=== PATIENT | female | born 1960 | race Caucasian/White ===

== ENCOUNTER 2024-03-26 12:55 | Day surgery (SDC) | payer SELFPAY, OTHER ==
[2024-03-26] VITALS (11 sets, daily range): BP systolic 155–181; BP diastolic 77–84; PULSE 60–88; RESP 16–17; TEMP 36.6–36.9; O2SAT 98–100; BMI 25.5
[2024-03-26] MEDS: Lactated Ringers 1,000 ML 15 ML IV (13:38)
--- NOTE | 2024-03-26 13:51 | PCM.PRE.AN2 ---
ASA Classification* ASA Classification ASA Classification: 2 Assessment & Plan Anesthesia* Anesthesia Assessment Anesthesia Assessment: Discussed sedation and/or anesthesia options, risks, benefits, and alternatives with patient/parents/legal guardian/POA. Questions invited. The patient/parents/legal guardian/POA seems to understand and agrees to proceed with anesthesia plan. Reviewed the physical assessment, medical history, allergy history and patient home medications list prior to surgery/procedure/anesthetic and documented any changes. Performed airway and anesthesia risk assessments. Anesthesia Type Anesthesia Type: MAC (GA bkup) Anesthesia Focused Assessment* Temperature: 98.5 F Pulse Rate: 60 Blood Pressure: 181/84 Respiratory Rate: 17 Pulse Ox: 100 Airway Assessment Mouth opens: >3 cm Mallampati Score: II Focused Labs Anesthesia Preop lab: CBC CHEMISTRY COAG Pre-Assessment Diagnosis/Proposed Procedure Planned Operative Procedure(s): CYSTO LEFT URETEROSCOPY WITH BIOPSY AND LEFT URETERAL STENT CYSTO WITH RETROGRADES Anesthesia History Anesthesia History - blindstitch lining feller: Anesthesia History - blindstitch lining feller Hx Hospitalization No 03/24/24 09:13 Any Problems With Anesthesia No 03/24/24 09:13 Cholinesterase deficiency No 03/24/24 09:13 You/Your Family Experience No 03/24/24 09:13 fever (hyperthermia) with Relationship Recent Exposure to Contagious No 03/26/24 13:34 Disease Does patient have nerve No 03/24/24 09:13 stimulator Patient instructed to have device shut off --Does patient have Pacemaker No 03/26/24 13:34 or ICD? When Was Last Pacemaker Check QUESTION #4 FULL TEXT: You/Your Family Experience fever (hyperthermia) with Anesthesia Last Oral Intake Last Oral intake: Last Oral Intake NPO since 00:00 03/26/24 13:34 Meds taken in AM with sips of No 03/26/24 13:34 water? Meds patient instructed to take am of surgery PONV PONV - blindstitch lining feller: PONV - blindstitch lining feller Female Yes 03/24/24 09:13 HX of Motion Sickness Yes 03/24/24 09:13 HX of N/V After Surgery No 03/24/24 09:13 Non-Smoker Yes 03/24/24 09:13 Duration of Surgery greater Yes 03/24/24 09:13 than 60 minutes Number of Risk Factors 4 03/24/24 09:13 PONV Score Severe Risk 03/24/24 09:13 Height & Weight Height & Weight: Anesthesia: Height & Weight Height 5 ft 1 in 03/26/24 13:34 Weight: 61.3 kg 03/26/24 13:34 Body Mass Index (BMI) 25.5 03/26/24 13:34 Respiratory Assessment Respiratory Assessment - blindstitch lining feller: Respiratory Tract Infection Hx - blindstitch lining feller Hx Respiratory Tract Infection No 03/24/24 09:13 STOP Sleep Apnea STOP Sleep Apnea - blindstitch lining feller: STOP Sleep Apnea - blindstitch lining feller Hx Hypertension No 03/24/24 09:13 Hx Sleep Apnea No 03/24/24 09:13 CPAP BIPAP Do you snore loudly (louder No 03/24/24 09:13 than talking or can be heard Do you often feel tired/ No 03/24/24 09:13 fatigued/ sleepy during daytime? Has anyone observed you stop No 03/24/24 09:13 breathing during sleep? STOP Results Negative 03/24/24 09:13 QUESTION #5 FULL TEXT : Do you snore loudly (louder than talking or can be heard through closed doors)? 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 Specify any problems Hx of Preganancy in last 3 No 03/24/24 09:13 Months Nurse Filling Out Transfusion DSCHRIBER 03/24/24 09:13 & Questions: Date: 03/24/24 03/24/24 09:13 Time: 09:14 03/24/24 09:13 Patient unable to answer at this time (ie. confused, unrespo /Reproduction History /Reproductive History - blindstitch lining feller: /Reproductive Hx- blindstitch lining feller Hx Now No 03/24/24 09:13 Gestational Age (in weeks): EDC: Hx Hx Para Hx Section SAB No 03/24/24 09:13 Active Medications Active Medications: Current Medications Generic Name Dose Route Start Last Admin Trade Name Freq PRN Reason Stop Dose Admin Cefazolin Sodium 2 gm/ N/A 20 mls @ 400 mls/hr 03/26/24 15:10 IV 03/26/24 15:12 PREOP ONE Lactated Ringer's 1,000 mls @ 15 mls/hr 03/26/24 13:15 03/26/24 13:38 IV 04/01/24 02:34 15 mls/hr .Q48H СЕРГЕЙ Administration Protocol PFSH Medical History Wears glasses Wears dentures Post-menopausal Cancer DVT (deep venous thrombosis) History of diverticulitis Non-smoker Cardiology follow-up encounter History of echocardiogram History of stress test History of rheumatic fever Home Medications ?Medication ?Instructions ?Recorded ?Last Taken ?Type BLACK ELDERBERRY 2 cap PO TID 03/24/24 03/25/24 History ascorbic acid (vitamin C) 1,000 mg 1 g PO DAILY 03/24/24 03/25/24 History tablet (C-1000) d-mannose 500 mg capsule 500 mg PO DAILY 03/24/24 03/25/24 History fish, borage, flaxseed oils-omega 1 cap PO BID 03/24/24 03/25/24 History 3,6,9 comb no.1 1,200 mg capsule ([place] 3-6-9) vitamin B12 500 mcg-folic acid 400 1 tab PO DAILY 03/24/24 03/25/24 History mcg tablet Allergy/AdvReac Type Severity Reaction Status Date / Time No Known Allergies Allergy Verified 03/26/24 13:33 Surgical History Hx of colonoscopy History of vascular surgery Hx of fusion of cervical spine Hx of colectomy History of lumbar fusion Hx laparoscopic cholecystectomy Social History Smoking Status: Never smoker Review of Systems (Anesthesia) ROS Narrative System reviewed and no additional complaints, except as documented.
--- NOTE | 2024-03-26 15:12 | PCM.HP.STD ---
[facility] - General General Date of Service: 03/26/24 Chief Complaint: Ureteral hydronephrosis left side HPI Narrative JEANNIE COKER, is a 63 F who presents for an evaluation of hydroureter and hydronephrosis on the left side she does have a history of colon cancer had prior chemotherapy and radiation and colon resection and now she has developed left hydroureter ureteral nephrosis on the left side so suspicious that this could be the cause or is possible she has another etiology is causing the obstruction of the left kidney today plan to do ureteroscopy left retrograde pyelogram possible biopsy and left stent placement [facility] Medical History Wears glasses Wears dentures Post-menopausal Cancer DVT (deep venous thrombosis) History of diverticulitis Non-smoker Cardiology follow-up encounter History of echocardiogram History of stress test History of rheumatic fever Home Medications ?Medication ?Instructions ?Recorded ?Last Taken ?Type BLACK ELDERBERRY 2 cap PO TID 03/24/24 03/25/24 History ascorbic acid (vitamin C) 1,000 mg 1 g PO DAILY 03/24/24 03/25/24 History tablet (C-1000) d-mannose 500 mg capsule 500 mg PO DAILY 03/24/24 03/25/24 History fish, borage, flaxseed oils-omega 1 cap PO BID 03/24/24 03/25/24 History 3,6,9 comb no.1 1,200 mg capsule ([place] 3-6-9) vitamin B12 500 mcg-folic acid 400 1 tab PO DAILY 03/24/24 03/25/24 History mcg tablet ciprofloxacin HCl 500 mg tablet 500 mg PO BID #6 tabs 03/26/24 Unknown Rx (Cipro) oxycodone 5 mg tablet 5 mg PO Q6H PRN pain 3 days #14 03/26/24 Unknown Rx tabs Allergy/AdvReac Type Severity Reaction Status Date / Time No Known Allergies Allergy Verified 03/26/24 13:33 Surgical History Hx of colonoscopy History of vascular surgery Hx of fusion of cervical spine Hx of colectomy History of lumbar fusion Hx laparoscopic cholecystectomy Social History Smoking Status: Never smoker Vital Signs Vital Signs Vital Signs: 03/26/24 13:34 03/26/24 13:34 03/26/24 13:51 Temperature 98.5 F 98.5 F Temperature Source Temporal Pulse Rate 60 60 Respiratory Rate 17 17 Respiratory Pattern Normal Blood Pressure 181/84 H 181/84 H Blood Pressure Mean 116 Blood Pressure Source Monitor Blood Pressure Position Semi-Fowlers Blood Pressure Location Left Arm Pulse Ox 100 100 Oxygen Delivery Method Room Air Weight Weight: 61.3 kg Body Mass Index (BMI) 25.5
--- NOTE | 2024-03-26 15:13 | DCINST_ITS ---
Discharge Instructions Diet Discharge Diet: No restrictions Activity Discharge Activity: Return to Normal Activity and May Not Drive (while taking narcotic pain medications.) Dressing / Incision Call your doctor if you observe: Fever of 101 or Higher Follow Up Care Please Follow Up With: Willard Wilkes MD When: Call [phone] for an appointment Test Results: Test results from this visit will be discussed in further detail at your follow- up appointment, if applicable. Discharge Plan Admission Primary Reason for Your Visit: left stent Attending Provider: Willard Wilkes Primary Care Provider: Sergey Morales Instructions Print Language: Montserratian Discharge Orders/Prescriptions Prescriptions: New ciprofloxacin HCl [Cipro] 500 mg tablet 500 mg PO BID Qty: 6 0RF oxycodone 5 mg tablet 5 mg PO Q6H PRN (Reason: pain) 3 Days Qty: 14 0RF Continued ascorbic acid (vitamin C) [C-1000] 1,000 mg tablet 1 g PO DAILY vitamin Y80-mciyb acid 500-400 mcg tablet 1 tab PO DAILY Rx Instructions: administer with a meal [place] 3-6-9 1,200 mg capsule 1 cap PO BID BLACK ELDERBERRY 2 cap PO TID d-mannose 500 mg capsule 500 mg PO DAILY Referrals / Follow Up: Willard Wilkes MD [Med Staff - Active Staff] - Sergey Morales DO [Primary Care Provider] - Disposition Disposition (needs filled in before D/C Order can be placed): Home, Self Care
[2024-03-26] MEDS: Cefazolin 2 GM in Syringe IV (15:20)
--- NOTE | 2024-03-26 15:36 | PCM.OPRPT ---
Operative Report (Standard) Operative Information Surgery/Procedure Performed: Cystoscopy left retrograde pyelogram and left stent placement Surgeon: Willard Wilkes Date of Procedure: 03/26/24 Procedure Start Time: 15:27 Procedure Stop Time: 15:36 Pre-Operative Diagnosis: Left hydroureteronephrosis Post-Operative Diagnosis: The same Select all DRAINS/GRAFTS/IMPLANTS that apply: Drains Drain details: 6 Salvadorean by 24 cm stent left side Type of Anesthesia: General Estimated Blood Loss: None Specimen collected: No Description of surgery: Patient was taken back to the operating room at this with duction of anesthesia she was placed in dorsolithotomy position looked in the bedside the bladder with a 24 Salvadorean rigid cystourethroscope the bladder was completely normal I then cannulated the left ureteral orifice with a Glidewire performed a retrograde contrast for cc contrast going up the ureter quite a bit but then the contrast would not go all the way up then advanced the the wire further up and then advanced a Pollick catheter further up and until I got a point there was a lot of resistance on the Pollick catheter I then performed a retrograde pyelogram there and you could see that contrast was squeaking through a very tight stricture in the ureter right over the pelvis and then the ureter was dilated I then was able to get a wire up into the kidney and then went past the wire with a Pollick catheter I then placed a stent on the left side to drain the kidney. 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 Patient's bladder was drained anesthesia reversed and she will follow-up in the office in a few weeks to review the results and discuss options. Surgical Findings: Dense stricture on retrograde on the left side and the ureter over the mid pelvis on x-rays were taken to prove Heel Painter honest john rocket crew member: No Complications Complications: No Admit VTE Documentation VTE Present on Admission: No VTE Mechan Device Prophylaxis: SCD's VTE Pharm Prophylaxis ordered?: No
--- NOTE | 2024-03-26 15:46 | PCM.POST.ANE ---
Anesthesia: Postop Eval I Current Vital Signs Temperature: 98 F Pulse Rate: 88 Blood Pressure: 165/80 Respiratory Rate: 16 Pulse Ox: 99 Oxygen Delivery Method: Room Air Assessment Airway patent: Yes Spontaneous unlabored respirations: Yes Mental status: Asleep nausea: No Vomiting: No Anesthesia Complication: No Fluid Hydration Crystalloid volume administer (ml): 400 Total IV fluid infused: 400 Progress Note Anesthesia document: Postop Eval 1 completed: Yes
--- NOTE | 2024-03-26 17:01 | POSTOPAN2_ITS ---
Anesthesia Postop Eval I Sum Postop Eval Completion status Anesthesia document: Postop Eval 1 completed: Yes Anesthesia Postop Eval I Summary Anesthesia Postop Eval I Summary: Anesthesia Postop Eval I: Assessment Summary Airway patent Yes 03/26/24 15:46 SPRINKLER [email or web address] Spontaneous unlabored Yes 03/26/24 15:46 SPRINKLER [email or web address] respirations Mental status Asleep 03/26/24 15:46 SPRINKLER [email or web address] nausea No 03/26/24 15:46 SPRINKLER [email or web address] Vomiting No 03/26/24 15:46 SPRINKLER [email or web address] Anesthesia Postop Eval I: Fluid Summary Crystalloid volume administer 400 03/26/24 15:46 SPRINKLER [email or web address] (ml) Colloids volume administered ( ml) Blood Product volume administered (ml) Total IV fluid infused 400 03/26/24 15:46 SPRINKLER [email or web address] Anesthesia Postop Eval I: Summary Notes Anesthesia Complication No 03/26/24 15:46 SPRINKLER [email or web address] Anesthesia Complication Comment: Post-operative progress note Anesthesia: Postop Eval II Evaluation Mental status: Awake and Calm Pain Level: 1 nausea: No Vomiting: No Complications Anesthesia Complication: No
--- NOTE | 2024-03-26 17:01 | PCM.POSTANE2 ---
Anesthesia Postop Eval I Sum Postop Eval Completion status Anesthesia document: Postop Eval 1 completed: Yes Anesthesia Postop Eval I Summary Anesthesia Postop Eval I Summary: Anesthesia Postop Eval I: Assessment Summary Airway patent Yes 03/26/24 15:46 APPRENTICE PATTERN [email or web address].[email or web address] Spontaneous unlabored Yes 03/26/24 15:46 APPRENTICE PATTERN MAKER.[email or web address] respirations Mental status Asleep 03/26/24 15:46 APPRENTICE PATTERN MAKER.[email or web address] nausea No 03/26/24 15:46 APPRENTICE PATTERN MAKER.[email or web address] Vomiting No 03/26/24 15:46 APPRENTICE PATTERN MAKER.[email or web address] Anesthesia Postop Eval I: Fluid Summary Crystalloid volume administer 400 03/26/24 15:46 APPRENTICE PATTERN MAKER.[email or web address] (ml) Colloids volume administered ( ml) Blood Product volume administered (ml) Total IV fluid infused 400 03/26/24 15:46 APPRENTICE PATTERN MAKER.JENNIFFER Anesthesia Postop Eval I: Summary Notes Anesthesia Complication No 03/26/24 15:46 APPRENTICE PATTERN MAKER.[email or web address] Anesthesia Complication Comment: Post-operative progress note Anesthesia: Postop Eval II Evaluation Mental status: Awake and Calm Pain Level: 1 nausea: No Vomiting: No Complications Anesthesia Complication: No
[2024-03-26] MEDS: 0.9% Saline Lock 10 ML Syringe IV (17:13)
== END 2024-03-26 17:57 | disposition home or self-care (01) ==
LOC: SDC 12:57 → AC 12:58
PROVIDERS: PCP Family Medicine; Referring Provider Urology; Visit Provider Urology
PROC: 0TJ98ZZ Inspection of Ureter, Via Natural or Artificial Opening Endoscopic (ICD-10-PCS; CPT 52352; principal; 2024-03-26 15:00)
DX: N13.1 Hydronephrosis with ureteral stricture, not elsewhere classified (principal); Z92.21 Personal history of antineoplastic chemotherapy; Z90.49 Acquired absence of other specified parts of digestive tract; Z85.038 Personal history of other malignant neoplasm of large intestine; Z92.3 Personal history of irradiation
CPT/HCPCS: 52332; 76000; J7120; A4216; C1769; C2617; J2405

== ENCOUNTER 2024-03-29 07:38 | Observation (INO) | payer OTHER, SELFPAY ==
[2024-03-29] VITALS (8 sets, daily range): BP systolic 148–174; BP diastolic 68–95; PULSE 67–80; RESP 16–18; TEMP 36.6–37.2; O2SAT 98–999; BMI 24.7; BMI 24.5
--- NOTE | 2024-03-29 08:14 | CT_ITS ---
INDICATION: left flank pain, ureter stent EXAMINATION: CT ABDOMEN AND PELVIS WITHOUT CONTRAST - CT Abdomen And Pelvis W/O Contrast Injection TECHNIQUE: Helically acquired images were obtained of the abdomen and pelvis without oral or IV contrast. The protocol utilizes one or more of the following dose reduction techniques: automated exposure control, adjustment of mA and/or kV according to patient size,and/or use of iterative reconstruction technique. IV Contrast dosage and agent: None. Oral contrast: None. RADIATION DOSAGE (If Supplied By Facility): CTDIvol = ( 6.75 ) mGy, DLP = ( 303.32 ) mGycm COMPARISON: No relevant prior comparison study available FINDINGS: LOWER CHEST: Lung bases are clear. No cardiomegaly or pericardial effusion. The lack of intravenous contrast limits evaluation of solid visceral organs. LIVER: Homogeneous. No focal mass. GALLBLADDER AND BILIARY TREE: There is nonvisualization of the gallbladder. No intra- or extrahepatic biliary ductal dilation. PANCREAS: No focal cystic or solid mass. SPLEEN: Normal size without focal cystic or solid mass. ADRENAL GLANDS: No nodules. KIDNEYS AND URETERS: Normal renal size and position. There is mild right-sided hydroureteronephrosis. There is a left-sided ureteral stent in place with proximal catheter within the left renal pelvis and the distal catheter terminating within the urinary bladder. There is moderate left-sided hydroureteronephrosis and perinephric stranding. There is a focus of air within the left upper collecting system consistent with prior instrumentation. PERITONEUM: No ascites or free air. No other fluid collection. BOWEL: No evidence of acute appendicitis. No stomach or bowel distension. No focal inflammatory change. There is a moderate amount of stool throughout the colon. There are sutures within the distal sigmoid colon. LYMPH NODES: No enlarged mesenteric or retroperitoneal lymph nodes. VESSELS: Aorta is non-dilated. There are peripheral calcifications of the abdominal aorta. URINARY BLADDER: Unremarkable. REPRODUCTIVE ORGANS: No pelvic masses. ABDOMINAL WALL: No discrete abdominal or pelvic wall hernia. BONES: There are postsurgical changes of L4-S1 characterized by bilateral pedicle screws and posterior spinal rods. There is L5 superior endplate deformity that appears chronic. CT/Abdomen/Pelvis without Cont IMPRESSION: Moderate left-sided hydroureteronephrosis associated perinephric stranding and a ureteral stent in place with the proximal stent within the renal pelvis and the distal stent within the urinary bladder. Mild right-sided hydroureteronephrosis. Moderate amount of stool throughout the colon. Atherosclerosis. Electronically Signed: Jaida Watters MD at 8:55 EST ,
[2024-03-29 08:22] LABS: Bacteria 0 SEEN /hpf (None Seen); Mucous, Urine 0 SEEN /hpf (<or=2+)
--- NOTE | 2024-03-29 08:25 | EX.ED.DYSGE1 ---
HPI History of Present Illness Chief Complaint: Abd Pain Informant: patient Narrative Narrative: Patient is a 63-year-old female presenting with worsening left-sided abdominal pain and back pain. 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 This was performed by Dr. Wilkes. She states the pain has been relatively well-controlled but she started having worsening pain Friday evening, 2 nights ago. She took her pain meds throughout the day yesterday but then last night developed worsening pain again. She states from 3:30 AM to 5:30 AM the pain was unbearable. She last took a Percocet at 5 AM. She states the pain is now still there but bearable. She states she has had vomiting but attributes it to the pain. She states her bowel movements have been okay given the fact that she is on pain medicine. She was having dysuria but that has improved. She denies any blood in her urine. Denies any fever or chills. Also having pain in her right lower back. Came in for further evaluation. [facility] Medical History Wears glasses Wears dentures Post-menopausal Cancer DVT (deep venous thrombosis) History of diverticulitis Non-smoker Cardiology follow-up encounter History of echocardiogram History of stress test History of rheumatic fever Home Medications ?Medication ?Instructions ?Recorded ?Last Taken ?Type BLACK ELDERBERRY 2 cap PO TID 03/24/24 03/25/24 History ascorbic acid (vitamin C) 1,000 mg 1 g PO DAILY 03/24/24 03/25/24 History tablet (C-1000) d-mannose 500 mg capsule 500 mg PO DAILY 03/24/24 03/25/24 History fish, borage, flaxseed oils-omega 1 cap PO BID 03/24/24 03/25/24 History 3,6,9 comb no.1 1,200 mg capsule ([place] 3-6-9) vitamin B12 500 mcg-folic acid 400 1 tab PO DAILY 03/24/24 03/25/24 History mcg tablet ciprofloxacin HCl 500 mg tablet 500 mg PO BID #6 tabs 03/26/24 Unknown Rx (Cipro) oxycodone 5 mg tablet 5 mg PO Q6H PRN pain 3 days #14 03/26/24 Unknown Rx tabs ondansetron 4 mg disintegrating 4 mg PO Q8H PRN PRN Nausea #10 tabs 03/29/24 Unknown Rx tablet oxycodone 5 mg tablet 5 mg PO Q6H PRN pain 3 days #12 03/29/24 Unknown Rx tabs phenazopyridine 200 mg tablet 200 mg PO TID #10 tabs 03/29/24 Unknown Rx (Pyridium) sennosides 8.6 mg tablet (Senna 8.6 mg PO BID PRN constipation #20 03/29/24 Unknown Rx Lax) tabs Allergy/AdvReac Type Severity Reaction Status Date / Time No Known Allergies Allergy Verified 03/29/24 07:38 Surgical History Hx of colonoscopy History of vascular surgery Hx of fusion of cervical spine Hx of colectomy History of lumbar fusion Hx laparoscopic cholecystectomy Social History Smoking Status: Never smoker ROS ROS ED Constitutional Constitutional ED: Denies chills or fever(s) Respiratory/Chest Respiratory/Chest: Denies cough or dyspnea Gastrointestinal Gastrointestinal: Reports abdominal pain, constipation and vomiting Genitourinary Genitourinary ED: Denies dysuria, hematuria or urinary frequency Musculoskeletal Musculoskeletal: Reports back pain; Denies myalgias Integumentary Denies rash Neurologic Neurologic: Denies weakness Hematologic/Lymphatic Hematologic/Lymphatic: Denies easy bleeding or easy bruising EXAM Physical Exam Const Vital Signs: 03/29/24 07:39 03/29/24 07:42 03/29/24 08:42 Temperature 98.9 F 98.9 F 98.6 F Temperature Source Oral Oral Oral Pulse Rate 67 67 67 Respiratory Rate 16 16 16 Blood Pressure 169/78 H 169/78 H 160/72 H Blood Pressure Mean 108 108 101 Pulse Ox 99 99 99 Oxygen Delivery Method Room Air Room Air Room Air 03/29/24 09:00 Temperature 98.6 F Temperature Source Oral Pulse Rate 67 Respiratory Rate 16 Blood Pressure 158/70 H Blood Pressure Mean 99 Pulse Ox 99 Oxygen Delivery Method Room Air Positive well nourished and well developed Constitutional Narrative: Uncomfortable appearing secondary to pain General Appearance ED: well developed and NAD HEENT Reports moist mucous membranes Eyes PERRL Neck supple Chest Wall inspection of chest normal Resp normal respiratory effort and clear to auscultation bilaterally Cardio regular rate and regular rhythm GI GI Narrative: Mild tenderness palpation of the left upper quadrant. No peritoneal signs. Auscultation: normoactive bowel sounds Palpation: soft; Negative for guarding Back/Spine Back/Spine Narrative: Left lower back tenderness to palpation General Back: Negative for CVA tenderness Lumbar Spine / Lower Back: Negative for lumbar spinal tenderness Neuro oriented x3 Sensorium / Orientation: alert Motor Exam: Negative for general weakness Psych mental status grossly normal Skin no rashes or lesions noted MDM MDM MDM Narrative Medical decision making narrative: Patient evaluated for worsening left flank pain. Patient had a stent placed of the left ureter secondary to stenosis of the ureter and hydronephrosis/hydroureter. She seems to be having postoperative pain. Denies any fever or chills. Differential includes displaced stent, recurrent hydronephrosis, urinary tract infection, pyelonephritis, constipation, colitis, bowel obstruction and muscle skeletal pain. Patient is given IV morphine with some pain improvement. She is also given Zofran. Lab work shows a normal CBC. BMP largely normal as well she is mildly elevated creatinine 1.2 however her baseline is not known. I suspect this is her baseline. Urinalysis is is consistent with inflammatory changes with a stent with 25-50 red blood cells and 0-5 white blood cells but no bacteria seen. CT shows moderate left-sided hydroureteronephrosis associated perinephric stranding and ureteral stent in place with the proximal stent within the renal pelvis and the distal stent within the urinary bladder. There is also moderate amount of stool in the colon. No other acute process. Case is discussed with Dr. Wilkes, who suspects this is pain associated with the stent. Will send the urine out for culture. He recommends adding Pyridium. He is comfortable with me giving her an additional prescription for oxycodone for further pain control. He also recommends that having the patient push fluids as this will help with the stent pain. Patient is informed of these findings. Is given additional dose of morphine. She is offered admission to the hospital for pain control but declined stating her father going to do in the hospital is giving pain medicine and rather be home. Discussed that she should give it more time to see if the pain subsides but she can also talk to Dr. Wilkes and if absolute x-ray they always could remove the stent. Patient verbalized agreement understand this plan. Is given a prescription for oral oxycodone prior to discharge. Discharged home in stable condition. Urine cultures pending at this time Lab Data Attestation: I reviewed the patient's lab results. Labs: Laboratory Results - last 24 hr 03/29/24 03/29/24 07:45 08:30 WBC 5.8 RBC 3.99 L Hgb 12.5 Hct 36.5 L MCV 91.5 MCH 31.3 MCHC 34.2 RDW Std Deviation 39.2 RDW Coeff of Mario 11.6 Plt Count 144 L MPV 8.8 Immature Gran % (Auto) 0.300 Neut % (Auto) 76.2 H Lymph % (Auto) 13.5 L [place] % (Auto) 8.3 Eos % (Auto) 1.2 Baso % (Auto) 0.5 Absolute Neuts (auto) 4.4 Absolute Lymphs (auto) 0.78 L Nucleated RBC % 0 Sodium 138 Potassium 4.2 Chloride 107 Carbon Dioxide 27.0 Anion Gap 4 L BUN 19 H Creatinine 1.20 H Estim Creat Clear Calc 42.42 Est GFR (MDRD) Af Amer 59 L Est GFR (MDRD) Non-Af 48 L BUN/Creatinine Ratio 15.8 Glucose 124 H Calcium 9.2 Urine Color Yellow Urine Clarity Sl. Cloudy Urine pH 6.5 Ur Specific [place] 1.010 Urine Protein 30 H Urine Glucose (UA) Normal Urine Ketones Negative Urine Occult Blood 250 H Urine Nitrite Negative Urine Bilirubin Negative Urine Urobilinogen Normal Ur Leukocyte Esterase 100 H Urine RBC 25-50 SEEN Urine WBC 0-5 SEEN Ur Squamous Epith Cells 0-5 SEEN Urine Bacteria 0 SEEN Urine Mucus 0 SEEN Radiography Diagnostic Testing: Clinical Impression(s) from Imaging Studies Abdomen/Pelvis CT 03/29/24 08:14 IMPRESSION: Moderate left-sided hydroureteronephrosis associated perinephric stranding and a ureteral stent in place with the proximal stent within the renal pelvis and the distal stent within the urinary bladder. Mild right-sided hydroureteronephrosis. Moderate amount of stool throughout the colon. Atherosclerosis. 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 Discharge Plan Triage Chief Complaint: Abd Pain ED Provider: Ani Godwin Dx/Rx/DC Orders Clinical Impression: Acute abdominal pain in left flank, Post-operative pain Instructions: ED Constipation (Adult), ED Post Op Wound Check, Pain Prescriptions: New oxycodone 5 mg tablet 5 mg PO Q6H PRN (Reason: pain) 3 Days Qty: 12 0RF phenazopyridine [Pyridium] 200 mg tablet 200 mg PO TID Qty: 10 0RF sennosides [Senna Lax] 8.6 mg tablet 8.6 mg PO BID PRN (Reason: constipation) Qty: 20 0RF ondansetron 4 mg tablet,disintegrating 4 mg PO Q8H PRN PRN (Reason: Nausea) Qty: 10 0RF No Action ascorbic acid (vitamin C) [C-1000] 1,000 mg tablet 1 g PO DAILY vitamin K39-dudru acid 500-400 mcg tablet 1 tab PO DAILY Rx Instructions: administer with a meal [place] 3-6-9 1,200 mg capsule 1 cap PO BID BLACK ELDERBERRY 2 cap PO TID d-mannose 500 mg capsule 500 mg PO DAILY ciprofloxacin HCl [Cipro] 500 mg tablet 500 mg PO BID Qty: 6 0RF oxycodone 5 mg tablet 5 mg PO Q6H PRN (Reason: pain) 3 Days Qty: 14 0RF Primary Care Provider: Sergey Morales Referrals: Willard Wilkes MD [Med Staff - Active Staff] - 3-5 Days if not improving Sergey Morales, [Primary Care Provider] - Activity Restrictions/Additional Instructions: Please push fluids. He may alternate ibuprofen and Tylenol with the pain medication prescribed today. The stent is in appropriate position. Your lab work is largely normal. You did have some findings of constipation on your CT as well. You been prescribed a laxative to help with that. If you develop a fever, the pain worsens or if you have intractable vomiting please return to the emergency room for repeat evaluation. Print Language: American
[2024-03-29] MEDS: Ondansetron 4 MG/2 ML Vial IV (08:26)
[2024-03-29] MEDS: Morphine 4 MG/ML Syringe IV ×2 (08:28→09:29)
[2024-03-29 08:45] LABS: Absolute Lymphocyte Count 0.78 X10^3/uL (0.83-4.51); Absolute Neutrophil Count 4.4 X10^3/uL (2.0-7.7); Basophil# 0.03 X10^3/uL; Basophil% 0.5 % (0-1); Eosinophil# 0.07 X10^3/uL; Eosinophils% 1.2 % (0-5); Hematocrit 36.5 % (37-47); Hemoglobin 12.5 g/dL (12.0-15.0); Lymphocyte # 0.78 X10^3/ul (0.83-4.51); Lymphocyte % 13.5 % (19-41); Mean Corp Hgb Conc 34.2 g/dL (32-36); Mean Corpuscular Hgb 31.3 pg (27.0-32.0); Mean Corpuscular Volume 91.5 fL (81-99); Mean Platelet Vol. 8.8 fl (6.2-12.0); Monocyte# 0.48 X10^3/uL; Monocyte% 8.3 % (0-10); NRBC Flagged by Analyzer 0 % (0-5); Neutrophil % 76.2 % (47-70); Platelet Count 144 K/mm3 (150-450); RBC Distribution Width CV 11.6 % (11.6-14.6); RBC Distribution Width SD 39.2 fl (35.1-43.9); Red Blood Count 3.99 M/mm3 (4.2-5.4); White Blood Count 5.8 K/mm3 (4.4-11.0)
[2024-03-29 08:50] LABS: Color, Urine Yellow (Yellow); Glucose, Dipstick Normal (Normal); Ketone-Dipstick Negative (Negative); Leukocyte Esterase-Dipstick 100 /ul (Negative); Nitrite-Dipstick Negative (Negative); Occult Blood-Urine 250 /ul (Negative); Protein-Dipstick 30 mg/dl (Negative); Urine Bilirubin Dipstick Negative (Negative); Urine Clarity Sl. Cloudy (Clear); Urine Urobilinogen Normal (Normal); Urine pH 6.5 (5.0 - 8.0)
[2024-03-29 09:05] LABS: Anion Gap 4 (5-15); BUN 19 mg/dL (7-18); BUN/Creat Ratio 15.8 RATIO (10-20); Calcium,Total 9.2 mg/dL (8.5-10.1); Chloride 107 mmol/L (98-107); EST Glomerular Filtration Rate 48 mL/min (>60); Est Glom Filt Rate - Afr Amer 59 mL/min (>60); Estimated Creatinine Clearance 42.42 ml/min; Glucose 124 mg/dL (74-106); Potassium 4.2 mmol/L (3.5-5.1); Sodium Level 138 mmol/L (136-145)
[2024-03-29 09:11] LABS: Red Blood Cells-Urine 25-50 SEEN /hpf (0-5)
[2024-03-29 09:12] LABS: Squamous Epithelial Cells - UA 0-5 SEEN /hpf (5-10); White Blood Cells 0-5 SEEN /hpf (0-5)
[2024-03-29] MEDS: Phenazopyridine 95 MG Tablet PO (10:01)
[2024-03-29] MEDS: oxyCODONE 5 MG Tablet PO (10:43)
[2024-03-29] MEDS: HYDROmorphone 1 MG/ML Syringe 0.5 MG IV (12:10)
[2024-03-29] MEDS: 0.9% Normal Saline (1000mL) 1,000 ML 100 ML IV (12:11)
--- NOTE | 2024-03-29 12:50 | HP.PCM_ITS ---
HPI - General General Date of Admission: 03/29/24 Date of Service: 03/29/24 Chief Complaint: stent pain HPI Narrative JEANNIE COKER, is a 63 F who presents with stent pain ct scan done looks okay wbc normal, no signs of infection will discharge today withpain meds. [facility] Medical History Wears glasses Wears dentures Post-menopausal Cancer DVT (deep venous thrombosis) History of diverticulitis Non-smoker Cardiology follow-up encounter History of echocardiogram History of stress test History of rheumatic fever Home Medications ?Medication ?Instructions ?Recorded ?Last Taken ?Type ascorbic acid (vitamin C) 1,000 mg 1 g PO DAILY 03/24/24 03/25/24 History tablet (C-1000) d-mannose 500 mg capsule 500 mg PO DAILY 03/24/24 03/25/24 History fish, borage, flaxseed oils-omega 1 cap PO BID 03/24/24 03/25/24 History 3,6,9 comb no.1 1,200 mg capsule ([place] 3-6-9) vitamin B12 500 mcg-folic acid 400 1 tab PO DAILY 03/24/24 03/25/24 History mcg tablet ciprofloxacin HCl 500 mg tablet 500 mg PO BID #6 tabs 03/26/24 03/28/24 Rx (Cipro) oxycodone 5 mg tablet 5 mg PO Q6H PRN pain 3 days #14 03/26/24 03/29/24 Rx tabs ondansetron 4 mg disintegrating 4 mg PO Q8H PRN PRN Nausea #10 tabs 03/29/24 Unknown Rx tablet oxycodone 5 mg tablet 5 mg PO Q6H PRN pain 3 days #12 03/29/24 Unknown Rx tabs phenazopyridine 200 mg tablet 200 mg PO TID #10 tabs 03/29/24 Unknown Rx (Pyridium) sennosides 8.6 mg tablet (Senna 8.6 mg PO BID PRN constipation #20 03/29/24 Unknown Rx Lax) tabs Allergy/AdvReac Type Severity Reaction Status Date / Time No Known Allergies Allergy Verified 03/29/24 07:38 Surgical History Hx of colonoscopy History of vascular surgery Hx of fusion of cervical spine Hx of colectomy History of lumbar fusion Hx laparoscopic cholecystectomy Social History Smoking Status: Never smoker Vital Signs Vital Signs Vital Signs: 03/29/24 07:39 03/29/24 07:42 03/29/24 08:42 Temperature 98.9 F 98.9 F 98.6 F Temperature Source Oral Oral Oral Pulse Rate 67 67 67 Respiratory Rate 16 16 16 Blood Pressure 169/78 H 169/78 H 160/72 H Blood Pressure Mean 108 108 101 Pulse Ox 99 99 99 Oxygen Delivery Method Room Air Room Air Room Air 03/29/24 09:00 03/29/24 10:00 03/29/24 11:00 Temperature 98.6 F 98 F 98 F Temperature Source Oral Oral Oral Pulse Rate 67 69 68 Respiratory Rate 16 18 16 Blood Pressure 158/70 H 154/68 H 148/68 H Blood Pressure Mean 99 96 94 Pulse Ox 99 99 99 Oxygen Delivery Method Room Air Room Air Room Air 03/29/24 12:00 03/29/24 12:00 Temperature 98 F 98 F Temperature Source Oral Pulse Rate 72 72 Respiratory Rate 18 18 Blood Pressure 174/95 H 174/95 H Blood Pressure Mean 121 121 Pulse Ox 99 999 Oxygen Delivery Method Room Air Weight Weight: 61.3 kg Body Mass Index (BMI) 24.7 Results Lab / Micro Data 03/29/24 08:30 03/29/24 08:30 Labs: Laboratory Results - last 24 hr 03/29/24 07:45: Urine Color Yellow, Urine Clarity Sl. Cloudy, Urine pH 6.5, Ur Specific [place] 1.010, Urine Protein 30 H, Urine Glucose (UA) Normal, Urine Ketones Negative, Urine Occult Blood 250 H, Urine Nitrite Negative, Urine Bilirubin Negative, Urine Urobilinogen Normal, Ur Leukocyte Esterase 100 H, Urine RBC 25-50 SEEN, Urine WBC 0-5 SEEN, Ur Squamous Epith Cells 0-5 SEEN, Urine Bacteria 0 SEEN, Urine Mucus 0 SEEN 03/29/24 08:30: WBC 5.8, RBC 3.99 L, Hgb 12.5, Hct 36.5 L, MCV 91.5, MCH 31.3, MCHC 34.2, RDW Std Deviation 39.2, RDW Coeff of Mario 11.6, Plt Count 144 L, MPV 8.8, Immature Gran % (Auto) 0.300, Neut % (Auto) 76.2 H, Lymph % (Auto) 13.5 L, [place] % (Auto) 8.3, Eos % (Auto) 1.2, Baso % (Auto) 0.5, Absolute Neuts (auto) 4.4, Absolute Lymphs (auto) 0.78 L, Nucleated RBC % 0, Sodium 138, Potassium 4.2, Chloride 107, Carbon Dioxide 27.0, Anion Gap 4 L, BUN 19 H, Creatinine 1.20 H, Estim Creat Clear Calc 42.42, Est GFR (MDRD) Af Amer 59 L, Est GFR (MDRD) Non-Af 48 L, BUN/Creatinine Ratio 15.8, Glucose 124 H, Calcium 9.2 Imaging Radiology Impression Abdomen/Pelvis CT 03/29/24 08:14 IMPRESSION: Moderate left-sided hydroureteronephrosis associated perinephric stranding and a ureteral stent in place with the proximal stent within the renal pelvis and the distal stent within the urinary bladder. Mild right-sided hydroureteronephrosis. Moderate amount of stool throughout the colon. Atherosclerosis. Electronically Signed: Jaida Watters MD at 8:55 EST ,
--- NOTE | 2024-03-29 13:42 | PCM.DC ---
Discharge Instructions Diet Discharge Diet: No restrictions DC O2, CPAP, BIPAP needs Additional Home O2 Discharge instructions: No Dressing / Incision Discharge Activity: Return to Normal Activity and May Not Drive (while taking narcotic pain medications.) Dressing / Incision Call your doctor if you observe: Fever of 101 or Higher Follow Up Care Please Follow Up With: Willard Wilkes MD When: Call [phone] for an appointment Test Results: Test results from this visit will be discussed in further detail at your follow-up appointment, if applicable. Discharge Plan Admission Admit Date/Time: 03/29/24 11:50 Primary Reason for Your Visit: stent pain Attending Provider: Willard Wilkes Primary Care Provider: Sergey Morales Instructions Patient Instructions: ED Constipation (Adult), ED Post Op Wound Check, Pain Additional Instructions / Restrictions: Please push fluids. He may alternate ibuprofen and Tylenol with the pain medication prescribed today. The stent is in appropriate position. Your lab work is largely normal. You did have some findings of constipation on your CT as well. You been prescribed a laxative to help with that. If you develop a fever, the pain worsens or if you have intractable vomiting please return to the emergency room for repeat evaluation. Discharge Orders/Prescriptions Prescriptions: New oxycodone 5 mg tablet 5 mg PO Q6H PRN (Reason: pain) 3 Days Qty: 12 0RF phenazopyridine [Pyridium] 200 mg tablet 200 mg PO TID Qty: 10 0RF sennosides [Senna Lax] 8.6 mg tablet 8.6 mg PO BID PRN (Reason: constipation) Qty: 20 0RF ondansetron 4 mg tablet,disintegrating 4 mg PO Q8H PRN PRN (Reason: Nausea) Qty: 10 0RF tamsulosin [Flomax] 0.4 mg capsule 0.4 mg PO BID Qty: 60 0RF docusate sodium [Colace] 100 mg capsule 100 mg PO BID Qty: 20 0RF tolterodine [Detrol LA] 4 mg capsule,extended release 24hr 4 mg PO DAILY Qty: 30 0RF phenazopyridine [Pyridium] 100 mg tablet 100 mg PO TID Qty: 15 0RF No Action ascorbic acid (vitamin C) [C-1000] 1,000 mg tablet 1 g PO DAILY vitamin Q12-yvmbo acid 500-400 mcg tablet 1 tab PO DAILY Rx Instructions: administer with a meal [place] 3-6-9 1,200 mg capsule 1 cap PO BID d-mannose 500 mg capsule 500 mg PO DAILY ciprofloxacin HCl [Cipro] 500 mg tablet 500 mg PO BID Qty: 6 0RF Patient Comments: started 03/27/24, pt still has 2 more doses. oxycodone 5 mg tablet 5 mg PO Q6H PRN (Reason: pain) 3 Days Qty: 14 0RF Referrals / Follow Up: Willard Wilkes MD [Med Staff - Active Staff] - 3-5 Days if not improving Sergey Morales DO [Primary Care Provider] - Disposition Disposition (needs filled in before D/C Order can be placed): Home, Self Care
[2024-03-29] MEDS: oxyCODONE 5 MG Tablet 10 MG PO (14:55)
== END 2024-03-29 12:54 | disposition home or self-care (01) ==
LOC: ED 08:20 → PCU 12:12
PROVIDERS: Admitting Provider Urology; Emergency Provider Emergency Medicine; PCP Family Medicine; Visit Provider Urology
DX: G89.18 Other acute postprocedural pain (principal); R10.9 Unspecified abdominal pain; N13.4 Hydroureter; N13.30 Unspecified hydronephrosis; Z96.0 Presence of urogenital implants; Z86.718 Personal history of other venous thrombosis and embolism
CPT/HCPCS: 74176; 80048; 81001; 85025; 87086; 96361; 96374; 96375; 96376; 99284; J7030; A4216; J2405

== ENCOUNTER 2024-08-04 09:27 | Day surgery (SDC) | payer SELFPAY, OTHER ==
--- NOTE | 2024-07-21 15:09 | PAT.ANE_ITS ---
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 When Was Last Pacemaker Check QUESTION #4 FULL TEXT: You/Your Family Experience fever (hyperthermia) with Anesthesia Last Oral Intake Last Oral intake: Last Oral Intake NPO since Meds taken in AM with sips of water? Meds patient instructed to take am of surgery PONV PONV - quality control auditor: PONV - quality control auditor Female Yes 07/21/24 14:11 HX of Motion Sickness Yes 07/21/24 14:11 HX of N/V After Surgery No 07/21/24 14:11 Non-Smoker Yes 07/21/24 14:11 Duration of Surgery greater No 07/21/24 14:11 than 60 minutes Number of Risk Factors 3 07/21/24 14:11 PONV Score Moderate Risk 07/21/24 14:11 Height & Weight Height & Weight: Anesthesia: Height & Weight Height 5 ft 2 in 03/29/24 12:30 Respiratory Assessment Respiratory Assessment - quality control auditor: Respiratory Tract Infection Hx - quality control auditor Hx Respiratory Tract Infection No 07/21/24 14:11 STOP Sleep Apnea STOP Sleep Apnea - quality control auditor: STOP Sleep Apnea - quality control auditor Hx Hypertension No 07/21/24 14:11 Hx Sleep Apnea No 07/21/24 14:11 CPAP BIPAP Do you snore loudly (louder No 07/21/24 14:11 than talking or can be heard Do you often feel tired/ No 07/21/24 14:11 fatigued/ sleepy during daytime? Has anyone observed you stop No 07/21/24 14:11 breathing during sleep? STOP Results Negative 07/21/24 14:11 QUESTION #5 FULL TEXT : Do you snore loudly (louder than talking or can be heard through closed doors)? 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 Specify any problems Hx of Preganancy in last 3 No 07/21/24 14:11 Months Nurse Filling Out Transfusion DSCHRIBER 07/21/24 14:11 & Questions: Date: 07/21/24 07/21/24 14:11 Time: 14:12 07/21/24 14:11 Patient unable to answer at this time (ie. confused, unrespo /Reproduction History /Reproductive History - quality control auditor: /Reproductive Hx- quality control auditor Hx Now No 07/21/24 14:11 Gestational Age (in weeks): EDC: Hx Hx Para Hx Section SAB No 07/21/24 14:11 PFSH Medical History (Updated 07/21/24 @ 14:16 by Blanca Flynn) History of renal disease Heart murmur Wears glasses Wears dentures Post-menopausal Cancer DVT (deep venous thrombosis) History of diverticulitis Non-smoker Cardiology follow-up encounter History of echocardiogram History of stress test History of rheumatic fever Home Medications ?Medication ?Instructions ?Recorded ?Last Taken ?Type ascorbic acid (vitamin C) 1,000 mg 1 g PO DAILY vitami n 03/24/24 03/25/24 History tablet (C-1000) d-mannose 500 mg capsule 500 mg PO DAILY supplement 1 05/24/23 03/25/24 History fish, borage, flaxseed oils-omega 1 cap PO BID supplem ent 03/24/24 03/25/24 History 3,6,9 comb no.1 1,200 mg capsule ([place] 3-6-9) vitamin B12 500 mcg-folic acid 400 1 tab PO DAILY stefan min 03/24/24 03/25/24 History mcg tablet docusate sodium 100 mg capsule 100 mg PO BID #20 caps 03/29/24 Unknown Rx (Colace) Allergy/AdvReac Type Severity Reaction Status Date / Time No Known Allergies Allergy Verified 07/21/24 14:07 Surgical History (Updated 07/21/24 @ 14:16 by Blanca Flynn) History of cystoscopy Hx of colonoscopy History of vascular surgery Hx of fusion of cervical spine Hx of colectomy History of lumbar fusion Hx laparoscopic cholecystectomy Social History Smoking Status: Never smoker Audit: Pertinent Findings Pertinent Findings EKG Perinent findings: August 05, 2023. Sinus bradycardia at 50 bpm. Possible left atrial enlargement. Echo (EF%) pertinent findings: August 12, 2023. Ejection fraction is 55 to 60%. No regional wall motion abnormality seen. Consult pertinent findings: August 07, 2023. Stable. Preop clearance. No issues. Risk for cardiovascular event is low in the setting of intermediate risk surgery. 2. Murmur?no signs and symptoms of heart failure. Will get echo. (See above). Recommendation Anesthesia Recommendation Anesthesia recommendation: OPTIMIZED for anesthesia
[2024-08-04] VITALS (7 sets, daily range): BP systolic 118–149; BP diastolic 71–85; PULSE 50–70; RESP 16–20; TEMP 36.3–36.5; O2SAT 98–100; BMI 25.0
--- NOTE | 2024-08-04 09:43 | PRE.ANES_ITS ---
ASA Classification* ASA Classification ASA Classification: 2 Assessment & Plan Anesthesia* Anesthesia Assessment Anesthesia Assessment: Discussed sedation and/or anesthesia options, risks, benefits, and alternatives with patient/parents/legal guardian/POA. Questions invited. The patient/parents/legal guardian/POA seems to understand and agrees to proceed with anesthesia plan. Reviewed the physical assessment, medical history, allergy history and patient home medications list prior to surgery/procedure/anesthetic and documented any changes. Performed airway and anesthesia risk assessments. Anesthesia Type Anesthesia Type: MAC (GA bkup) Anesthesia Focused Assessment* Airway Assessment Mouth opens: >3 cm Mallampati Score: II Focused Labs Anesthesia Preop lab: CBC WBC 5.8 K/mm3 (4.4-11.0) 03/29/24 08:30 03/29/24 RBC 3.99 M/mm3 (4.2-5.4) L 03/29/24 08:30 03/29/24 Hgb 12.5 g/dL (12.0-15.0) 03/29/24 08:30 03/29/24 Hct 36.5 % (37-47) L 03/29/24 08:30 03/29/24 Plt Count 144 K/mm3 (150-450) L 03/29/24 08:30 03/29/24 CHEMISTRY Potassium 4.2 mmol/L (3.5-5.1) 03/29/24 08:30 03/29/24 Sodium 138 mmol/L (136-145) 03/29/24 08:30 03/29/24 BUN 19 mg/dL (7-18) H 03/29/24 08:30 03/29/24 Creatinine 1.20 mg/dL (0.55-1.02) H 03/29/24 08:30 Glucose 124 mg/dL (74-106) H 03/29/24 08:30 03/29/24 COAG Pre-Assessment Diagnosis/Proposed Procedure Planned Operative Procedure(s): LEFT URETERAL STENT CHANGE Anesthesia History 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 When Was Last Pacemaker Check QUESTION #4 FULL TEXT: You/Your Family Experience fever (hyperthermia) with Anesthesia Last Oral Intake Last Oral intake: Last Oral Intake NPO since Meds taken in AM with sips of water? Meds patient instructed to take am of surgery PONV PONV - supervisor electron tube processing: PONV - supervisor electron tube processing Female Yes 07/21/24 14:11 HX of Motion Sickness Yes 07/21/24 14:11 HX of N/V After Surgery No 07/21/24 14:11 Non-Smoker Yes 07/21/24 14:11 Duration of Surgery greater No 07/21/24 14:11 than 60 minutes Number of Risk Factors 3 07/21/24 14:11 PONV Score Moderate Risk 07/21/24 14:11 Height & Weight Height & Weight: Anesthesia: Height & Weight Height 5 ft 2 in 03/29/24 12:30 Respiratory Assessment Respiratory Assessment - supervisor electron tube processing: Respiratory Tract Infection Hx - supervisor electron tube processing Hx Respiratory Tract Infection No 07/21/24 14:11 STOP Sleep Apnea STOP Sleep Apnea - supervisor electron tube processing: STOP Sleep Apnea - supervisor electron tube processing Hx Hypertension No 07/21/24 14:11 Hx Sleep Apnea No 07/21/24 14:11 CPAP BIPAP Do you snore loudly (louder No 07/21/24 14:11 than talking or can be heard Do you often feel tired/ No 07/21/24 14:11 fatigued/ sleepy during daytime? Has anyone observed you stop No 07/21/24 14:11 breathing during sleep? STOP Results Negative 07/21/24 14:11 QUESTION #5 FULL TEXT : Do you snore loudly (louder than talking or can be heard through closed doors)? 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 Specify any problems Hx of Preganancy in last 3 No 07/21/24 14:11 Months Nurse Filling Out Transfusion DSCHRIBER 07/21/24 14:11 & Questions: Date: 07/21/24 07/21/24 14:11 Time: 14:12 07/21/24 14:11 Patient unable to answer at this time (ie. confused, unrespo /Reproduction History /Reproductive History - supervisor electron tube processing: /Reproductive Hx- supervisor electron tube processing Hx Now No 07/21/24 14:11 Gestational Age (in weeks): EDC: Hx Hx Para Hx Section SAB No 07/21/24 14:11 Active Medications Active Medications: Current Medications Generic Name Dose Route Start Last Admin Trade Name Freq PRN Reason Stop Dose Admin Cefazolin Sodium 2 gm/ N/A 20 mls @ 400 mls/hr 08/04/24 11:40 IV 08/04/24 11:42 PREOP [facility] Medical History History of renal disease Heart murmur Wears glasses Wears dentures Post-menopausal Cancer DVT (deep venous thrombosis) History of diverticulitis Non-smoker Cardiology follow-up encounter History of echocardiogram History of stress test History of rheumatic fever Home Medications ?Medication ?Instructions ?Recorded ?Last Taken ?Type ascorbic acid (vitamin C) 1,000 mg 1 g PO DAILY vitami n 03/24/24 03/25/24 History tablet (C-1000) d-mannose 500 mg capsule 500 mg PO DAILY supplement 1 05/24/23 03/25/24 History fish, borage, flaxseed oils-omega 1 cap PO BID supplem ent 03/24/24 03/25/24 History 3,6,9 comb no.1 1,200 mg capsule ([place] 3-6-9) vitamin B12 500 mcg-folic acid 400 1 tab PO DAILY stefan min 03/24/24 03/25/24 History mcg tablet docusate sodium 100 mg capsule 100 mg PO BID #20 caps 03/29/24 Unknown Rx (Colace) Allergy/AdvReac Type Severity Reaction Status Date / Time No Known Allergies Allergy Verified 07/21/24 14:07 Surgical History History of cystoscopy Hx of colonoscopy History of vascular surgery Hx of fusion of cervical spine Hx of colectomy History of lumbar fusion Hx laparoscopic cholecystectomy Social History Smoking Status: Never smoker Review of Systems (Anesthesia) ROS Narrative System reviewed and no additional complaints, except as documented.
--- NOTE | 2024-08-04 10:04 | HP.PCM_ITS ---
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 [facility] Medical History History of renal disease Heart murmur Wears glasses Wears dentures Post-menopausal Cancer DVT (deep venous thrombosis) History of diverticulitis Non-smoker Cardiology follow-up encounter History of echocardiogram History of stress test History of rheumatic fever Home Medications ?Medication ?Instructions ?Recorded ?Last Taken ?Type ascorbic acid (vitamin C) 1,000 mg 1 g PO DAILY vitami n 03/24/24 03/25/24 History tablet (C-1000) d-mannose 500 mg capsule 500 mg PO DAILY supplement 1 05/24/23 03/25/24 History fish, borage, flaxseed oils-omega 1 cap PO BID supplem ent 03/24/24 03/25/24 History 3,6,9 comb no.1 1,200 mg capsule ([place] 3-6-9) vitamin B12 500 mcg-folic acid 400 1 tab PO DAILY stefan min 03/24/24 03/25/24 History mcg tablet docusate sodium 100 mg capsule 100 mg PO BID #20 caps 03/29/24 Unknown Rx (Colace) Allergy/AdvReac Type Severity Reaction Status Date / Time No Known Allergies Allergy Verified 07/21/24 14:07 Surgical History History of cystoscopy Hx of colonoscopy History of vascular surgery Hx of fusion of cervical spine Hx of colectomy History of lumbar fusion Hx laparoscopic cholecystectomy Social History Smoking Status: Never smoker Vital Signs Vital Signs Vital Signs: 08/04/24 09:55 08/04/24 09:55 Temperature 97.7 F L Temperature Source Temporal Pulse Rate 51 L Respiratory Rate 20 H Respiratory Pattern Normal Blood Pressure 149/81 H Blood Pressure Mean 103 Blood Pressure Source Monitor Blood Pressure Position Semi-Fowlers Blood Pressure Location Left Arm Pulse Ox 100 Oxygen Delivery Method Room Air Weight Weight: 62 kg Body Mass Index (BMI) 25.0
[2024-08-04] MEDS: 0.9% Normal Saline (1000mL) 1,000 ML 15 ML IV (10:20)
[2024-08-04] MEDS: Cefazolin 2 GM in Syringe IV (10:24)
--- NOTE | 2024-08-04 10:44 | PCM.DC ---
Discharge Instructions Diet Discharge Diet: No restrictions DC O2, CPAP, BIPAP needs Home O2 Discharge instructions: No Dressing / Incision Discharge Activity: Return to Normal Activity and May Not Drive (while taking narcotic pain medications.) Dressing / Incision Call your doctor if you observe: Fever of 101 or Higher Follow Up Care Please Follow Up With: Willard Wilkes MD When: Call [phone] for an appointment Test Results: Test results from this visit will be discussed in further detail at your follow-up appointment, if applicable. Discharge Plan Admission Primary Reason for Your Visit: stent change Attending Provider: Willard Wilkes Primary Care Provider: Sergey Morales Instructions Print Language: Croatian Discharge Orders/Prescriptions Prescriptions: Continued ascorbic acid (vitamin C) [C-1000] 1,000 mg tablet 1 g PO DAILY vitamin M47-stogd acid 500-400 mcg tablet 1 tab PO DAILY Rx Instructions: administer with a meal [place] 3-6-9 1,200 mg capsule 1 cap PO BID d-mannose 500 mg capsule 500 mg PO DAILY docusate sodium [Colace] 100 mg capsule 100 mg PO BID Qty: 20 0RF Referrals / Follow Up: Willard Wilkes MD [Med Staff - Active Staff] - Sergey Morales DO [Primary Care Provider] - Disposition Disposition (needs filled in before D/C Order can be placed): Home, Self Care
--- NOTE | 2024-08-04 10:45 | PCM.OPRPT ---
Operative Report (Standard) Operative Information Date of Procedure: 08/04/24 Pre-Operative Diagnosis: Chronic left ureteral obstruction history of colon cancer and chemotherapy Post-Operative Diagnosis: The same Surgery/Procedure Performed: Cystoscopy retrograde pyelogram and stent change left side sewer head: No Type of Anesthesia: General RN Documented Start/Stop Times: Operation Date: 08/04/24 11:40 Case Time Into Pre-Op 08/04/24 09:41 Out of Pre-Op 08/04/24 10:20 Anesthesia Start 08/04/24 10:24 Into Room 08/04/24 10:24 Procedure Start 08/04/24 10:38 Procedure Start Time: 10:38 Procedure Stop Time: 10:45 Select all DRAINS/GRAFTS/IMPLANTS that apply: None Estimated Blood Loss: 0 Specimen collected: No Description of surgery: Patient was taken back to the operating room after induction of general anesthesia, the patient was placed in dorsolithotomy position. The urethra and genitals were prepped and draped in usual sterile fashion. Using a 21 [place] rigid cystourethroscope the entire length of the urethra was normal then went into the bladder. Identified the trigone the left and right ureteral orifice. I then cannulated the left orifice and advanced a wire up into the kidney. I then backloaded a 5 [place] open ended catheter over the wire and injected contrast to delineate the anatomy. Still has significant hydronephrosis and obstruction in the kidney still needs a stent. After the retrograde was performed I then used fluoroscopic images and guidance to advanced a wire up into the kidney and over the 0.038 glidewire I advanced a 6 [place]ian by 26 cm double pigtail stent. I then pulled the 0.038 Glidewire off and the stent coiled in the kidney bladder good position. The bladder was then drained. We confirmed the position of the stent by fluoroscopy. Patient anesthetic was reversed and was taken back to the PACU in good condition. Surgical Findings: left hydro, new stent placed Complications Complications: No Admit VTE Documentation VTE Present on Admission: No VTE Mechan Device Prophylaxis: SCD's VTE Pharm Prophylaxis ordered?: No
--- NOTE | 2024-08-04 10:54 | PCM.POST.ANE ---
Anesthesia: Postop Eval I Current Vital Signs Temperature: 97.4 F Pulse Rate: 69 Blood Pressure: 118/71 Respiratory Rate: 16 Pulse Ox: 98 Assessment Airway patent: Yes Spontaneous unlabored respirations: Yes nausea: No Vomiting: No Anesthesia Complication: No Fluid Hydration Crystalloid volume administer (ml): 200 Total IV fluid infused: 200 Progress Note Anesthesia document: Postop Eval 1 completed: Yes
--- NOTE | 2024-08-04 11:29 | POSTOPAN2_ITS ---
Anesthesia Postop Eval I Sum Postop Eval Completion status Anesthesia document: Postop Eval 1 completed: Yes Anesthesia Postop Eval I Summary Anesthesia Postop Eval I Summary: Anesthesia Postop Eval I: Assessment Summary Airway patent Yes 08/04/24 10:54 CASING IN LINE [email or web address] Spontaneous unlabored Yes 08/04/24 10:54 CASING IN LINE [email or web address] respirations Mental status nausea No 08/04/24 10:54 CASING IN LINE [email or web address] Vomiting No 08/04/24 10:54 CASING IN LINE [email or web address] Anesthesia Postop Eval I: Fluid Summary Crystalloid volume administer 200 08/04/24 10:54 CASING IN LINE [email or web address].[email or web address] (ml) Colloids volume administered ( ml) Blood Product volume administered (ml) Total IV fluid infused 200 08/04/24 10:54 CASING IN LINE [email or web address] Anesthesia Postop Eval I: Summary Notes Anesthesia Complication No 08/04/24 10:54 CASING IN LINE [email or web address] Anesthesia Complication Comment: Post-operative progress note Anesthesia: Postop Eval II Evaluation Mental status: Awake Pain Level: 0 nausea: No Vomiting: No
--- NOTE | 2024-08-04 11:29 | PCM.POSTANE2 ---
Anesthesia Postop Eval I Sum Postop Eval Completion status Anesthesia document: Postop Eval 1 completed: Yes Anesthesia Postop Eval I Summary Anesthesia Postop Eval I Summary: Anesthesia Postop Eval I: Assessment Summary Airway patent Yes 08/04/24 10:54 FINANCIAL [email or web address] Spontaneous unlabored Yes 08/04/24 10:54 FINANCIAL [email or web address] respirations Mental status nausea No 08/04/24 10:54 FINANCIAL [email or web address] Vomiting No 08/04/24 10:54 FINANCIAL [email or web address] Anesthesia Postop Eval I: Fluid Summary Crystalloid volume administer 200 08/04/24 10:54 FINANCIAL [email or web address] (ml) Colloids volume administered ( ml) Blood Product volume administered (ml) Total IV fluid infused 200 08/04/24 10:54 FINANCIAL [email or web address] Anesthesia Postop Eval I: Summary Notes Anesthesia Complication No 08/04/24 10:54 FINANCIAL [email or web address] Anesthesia Complication Comment: Post-operative progress note Anesthesia: Postop Eval II Evaluation Mental status: Awake Pain Level: 0 nausea: No Vomiting: No
== END 2024-08-04 12:40 | disposition home or self-care (01) ==
LOC: SDC 09:30 → AC 09:32
PROVIDERS: PCP Family Medicine; Referring Provider Urology; Visit Provider Urology
PROC: (CPT 52332; principal; 2024-08-04 11:25)
DX: N13.1 Hydronephrosis with ureteral stricture, not elsewhere classified (principal); Z90.49 Acquired absence of other specified parts of digestive tract; Z79.899 Other long term (current) drug therapy; Z85.038 Personal history of other malignant neoplasm of large intestine; Z92.21 Personal history of antineoplastic chemotherapy; Z92.3 Personal history of irradiation
CPT/HCPCS: 52332; 76000; A4216; C1769; C2617